=== PATIENT | female | born 1965 | race Caucasian/White ===

== ENCOUNTER 2017-12-17 18:10 | Emergency (ER) | payer SELFPAY ==
--- NOTE | 2017-12-17 18:13 | PDOC ---
Rapid Medical Evaluation Time Seen by Provider: 12/17/17 18:11 Medical Evaluation: Allergies Allergy/AdvReac Type Severity Reaction Status Date / Time No Known Allergies Allergy Verified 09/19/14 15:55 12/17/17 18:11 52 year old female history of renal colic presenting with sudden onset of left upper back pain since last night. Pain worse with deep breathing. No cough. V/s unremarkable. -EKG -Chest and rib xrays To Ft for further evaluation.
[2017-12-17 18:16] VITALS: BP 127/75; PULSE 73; TEMP 98; BMI 27.3
--- NOTE | 2017-12-17 18:48 | PDOC ---
History of Present Illness <Lindsey Sal - Last Filed: 12/17/17 20:54> - General History Source: Patient Exam Limitations: No Limitations - History of Present Illness Initial Comments: 12/17/17 18:45 Patient is a 52-year-old female, denies any significant medical history, currently on no medication presents for evaluation of reproducible left lateral rib pain and pain on inspiration to left lateral side and posterior left back. Denies any chest pain or shortness of breath. Reports pain started yesterday after pushing her granddaughters carriage. Denies any fever, no productive cough , no jaw pain, arm pain. Past Medical History: [Denies]. Allergies: No known allergies Medications: [None] Family History: Non-contributory Social History: Denies smoking, alcohol use, or IVDU Vital signs on arrival are [notable for pulse of 96.] Review of Systems GENERAL/CONSTITUTIONAL: [No fever or chills. No weakness. No weight change.] HEAD, EYES, EARS, NOSE AND THROAT: [No change in vision. No ear pain or discharge. No sore throat. ] CARDIOVASCULAR: [No chest pain or shortness of breath.] RESPIRATORY: [No cough, wheezing, or hemoptysis.] GASTROINTESTINAL: [No nausea, vomiting, diarrhea or constipation. No rectal bleeding.] GENITOURINARY: [No dysuria, frequency, or change in urination.] MUSCULOSKELETAL: [No joint or muscle swelling or pain. No neck or back pain.] SKIN AND BREASTS: [No rash or easy bruising.] NEUROLOGIC: [No headache, vertigo, loss of consciousness, or loss of sensation.] PSYCHIATRIC: [No depression or anxiety.] ENDOCRINE: [No increased thirst. No abnormal weight change.] HEMATOLOGIC/LYMPHATIC: [No anemia, easy bleeding, or history of blood clots.] ALLERGIC/IMMUNOLOGIC: [No hives or skin allergy. No latex allergy.] Physical Exam: GENERAL: [The patient is awake, alert, and fully oriented, in no acute distress. ] HEAD: [Normal with no signs of trauma.] EYES: [Pupils equal, round and reactive to light, extraocular movements intact, sclera anicteric, conjunctiva clear.] ENT: [Ears normal, nares patent, oropharynx clear without exudates. Moist mucous membranes. No uvula deviation] NECK: [Normal range of motion, supple without lymphadenopathy, JVD, or masses.] LUNGS: [Breath sounds equal, clear to auscultation bilaterally. No wheezes, and no crackles. Pain to left posterior back on inspiration.] HEART: [Regular rate and rhythm, normal S1 and S2 without murmur, rub or gallop. ] ABDOMEN: [Soft, nontender, normoactive bowel sounds. No guarding, no rebound. No masses. No bruising or abrasions] MUSCULOSKELETAL: [Normal range of motion, no edema. No clubbing or cyanosis. No cords, erythema, or tenderness. Left CVA Tenderness with fist palpation, pain to musculature of the left lateral torso and back.] NEUROLOGICAL: [Cranial nerves II through XII grossly intact. Normal speech, normal gait.] SKIN: [Warm, Dry, normal turgor, no rashes or lesions noted.] 12/17/17 20:11 <Ermelinda Loredo - Last Filed: 12/19/17 08:13> - General Chief Complaint: Pain Stated Complaint: PAIN, ACUTE Time Seen by Provider: 12/17/17 18:11 Past History <Lindsey Sal - Last Filed: 12/17/17 20:54> - Past Medical History COPD: No Kidney Stones: Yes - Suicide/Smoking/Psychosocial Hx Smoking History: Never smoked Have you smoked in the past 12 months: No Number of Cigarettes Smoked Daily: 0 Information on smoking cessation initiated: No Hx Alcohol Use: No Drug/Substance Use Hx: No Substance Use Type: None <Ermelinda Loredo - Last Filed: 12/19/17 08:13> - Past Medical History Allergies/Adverse Reactions: Allergies Allergy/AdvReac Type Severity Reaction Status Date / Time No Known Allergies Allergy Verified 12/17/17 18:11 Home Medications: Ambulatory Orders Naproxen [Naprosyn] 500 mg PO BID PRN #20 tablet 12/17/17 *Physical Exam - Vital Signs Last Vital Signs Temp Pulse Resp BP Pulse Ox 98.0 F 73 18 127/75 100 12/17/17 18:11 12/17/17 18:11 12/17/17 18:11 12/17/17 18:11 12/17/17 18:11 <Lindsey Sal - Last Filed: 12/17/17 20:54> - Vital Signs Last Vital Signs Temp Pulse Resp BP Pulse Ox 98.0 F 73 18 127/75 100 12/17/17 18:11 12/17/17 18:11 12/17/17 18:11 12/17/17 18:11 12/17/17 18:11 <Ermelinda Loredo - Last Filed: 12/19/17 08:13> ED Treatment Course - ADDITIONAL ORDERS Additional order review: Laboratory Results 12/17/17 19:30 Urine Color Yellow Urine Appearance Clear Urine pH 5.0 Ur Specific [place] 1.026 Urine Protein Negative Urine Glucose (UA) Negative Urine Ketones Negative Urine Blood 2+ H Urine Nitrite Negative Urine Bilirubin Negative Urine Urobilinogen Negative Ur Leukocyte Esterase Negative Urine WBC (Auto) 1 Urine RBC (Auto) 4 Ur Epithelial Cells Rare Urine Mucus Rare - Medications Given in the ED: ED Medications Discontinued Medications Generic Name Dose Route Start Last Admin Trade Name Freq PRN Reason Stop Dose Admin Ketorolac Tromethamine 60 mg 12/17/17 19:10 12/17/17 19:16 Toradol Injection - IM 12/17/17 19:11 60 mg ONCE ONE Administration <Lindsey Sal - Last Filed: 12/17/17 20:54> Medical Decision Making - Medical Decision Making 12/17/17 18:47 A/P: Patient here for evaluation of left torso, back pain which is reproducible and pain on deep inspiration. EKG was performed in triage. Twelve-lead EKG was performed and reviewed by me. There is normal rhythm with a normal rate. Right bundle branch block, with no ischemia. Sent to x-ray of chest and ribs 12/17/17 19:16 I will give Toradol for pain, chest x-ray is negative for acute cardiopulmonary disease as well as wrist fracture. 12/17/17 20:08 Some relief after Toradol, +2 blood noted in urine. Will send patient for CT rule out kidney stone. After discussing lab results with the patient she states she has had kidney stones in the past that required surgical intervention. Did not initially disclose this information. I am signing this patient out to my colleague: RHINA Sal In brief, this patient is being seen in the ED for a chief complaint of: [Left lateral torso pain, Left CVA tenderness. ] I have completed the initial assessment interview note and have ordered: Urinalysis, urine culture, Toradol, CT scan I have reviewed the following results: Urinalysis Pending results are: CAT scan Plan for disposition is as follows: [Pending] 12/17/17 20:11 <FacundoErmelinda - Last Filed: 12/19/17 08:13> *DC/Admit/Observation/Transfer <Lindsey Sal - Last Filed: 12/17/17 20:54> <Ermelinda Loredo - Last Filed: 12/19/17 08:13> Diagnosis at time of Disposition: Musculoskeletal back pain - Discharge Dispostion Disposition: HOME Condition at time of disposition: Improved - Prescriptions Prescriptions: Naproxen [Naprosyn] 500 mg PO BID PRN #20 tablet PRN Reason: Pain - Referrals Referrals: Harley Mauro MD [Primary Care Provider] - - Patient Instructions Additional Instructions: take naprosyn for pain as directed follow with your doctor TOMORROW for a follow up exam and to discuss the urinalysis findings no evidence of kidney stones today you have been given copies of the tests done today apply a warm heating pad to the area of pain every 3hrs for 20 minutes return to ER for any worsening or concerning symptoms samuel naprosyn para el dolor segn las indicaciones siga con iyer doctor TOMORROW para un examen de seguimiento y para analizar los hallazgos del anlisis de orina no hay evidencia de clculos renales hoy se le galarza dado copias de las pruebas realizadas hoy aplique margie almohadilla trmica caliente en el farnaz del dolor cada 3 horas dino 20 minutos regresar a la jaquan de urgencias por cualquier empeoramiento o sntomas - Post Discharge Activity
[2017-12-17] MEDS ORDERED: KETOROLAC TROMETHAMINE 60 MG/2 ML VIAL IM ONE (19:10)
[2017-12-17] MEDS ORDERED: KETOROLAC TROMETHAMINE 60 MG/2 ML VIAL ONE (19:12)
[2017-12-17 19:58] LABS: URINE APPEARANCE CLEAR; URINE BILIRUBIN NEGATIVE (NEGATIVE); URINE BLOOD 2+ (NEGATIVE); URINE COLOR YELLOW; URINE GLUCOSE (UA) NEGATIVE (NEGATIVE); URINE KETONE NEGATIVE (NEGATIVE); URINE LEUK ESTERASE NEGATIVE (NEGATIVE); URINE NITRITE NEGATIVE (NEGATIVE); URINE PROTEIN NEGATIVE (NEGATIVE); URINE UROBILINOGEN NEGATIVE mg/dL (0.2-1.0)
[2017-12-17 20:03] LABS: EPI CELLS RARE /HPF (FEW); URINE MUCUS RARE
--- NOTE | 2017-12-18 10:06 | EKG ---
Test Reason : Blood Pressure : / mmHG Vent. Rate : 066 BPM Atrial Rate : 066 BPM P-R Int : 166 ms QRS Dur : 080 ms QT Int : 420 ms P-R-T Axes : 050 039 035 degrees QTc Int : 440 ms NORMAL SINUS RHYTHM NORMAL ECG NO PREVIOUS ECGS AVAILABLE Confirmed by DARRYL MCDANIELS MD ([id number]) on 12/18/2017 10:06:07 AM Referred By: Confirmed By:DARRYL MCDANIELS MD
== END 2017-12-17 20:58 | disposition home or self-care (01) ==
LOC: JERFT 18:10
PROC: 3E0233Z Introduction of Anti-inflammatory into Muscle, Percutaneous Approach (ICD-10-PCS; principal; 2017-12-17)
DX: M54.89 Other dorsalgia (principal)
CPT/HCPCS: 71046-TC-FY; 71101-TC-FY; 74176; 81003; 81015; 87086; 93005; 93010; 99281-25